=== PATIENT | male | born 1980 | race Caucasian/White ===

== ENCOUNTER 2017-01-29 17:24 | Emergency (ER) | payer OTHER ==
[~2017-01-29] VITALS: Ht 177.8 cm; Wt 107.8 kg
[~2017-01-29 17:24] MED LIST: AMOX TR-K CLV1 EAC4 PO; CYMBALTA60 MG PO; FIORICET,ESG1 TABLET PO; MULTIVITAMIN1 EAC2 PO; NAPROSYN500 MG PO; PERCOCET 5/31 TABLET PO; PREDNISONE10 MG PO; ULTRACET1 TABLET PO; VALIUM5 MG PO
[2017-01-29 20:28] VITALS: BP 174/110
== END 2017-01-29 20:28 | disposition home or self-care (01) ==
LOC: EME 17:24
DX: S83.92XA Sprain of unspecified site of left knee, initial encounter (principal); W18.39XA Other fall on same level, initial encounter; Y93.64 Activity, baseball
CPT/HCPCS: 73564; 99281; 99283